=== PATIENT | male | born 1990 | race African-American/Black ===

== ENCOUNTER 2018-12-08 16:44 | Emergency (ER) | payer SELFPAY ==
[~2018-12-08] VITALS: Ht 172.7 cm; Wt 68.0 kg
[2018-12-08] MEDS ORDERED: BACITRACIN ZINC OINT UDPKT TOP ONE (17:30)
[2018-12-08] MEDS ORDERED: TETANUS, DIPHTHERIA, PERTUSSIS VAC/PF 0.5ML (>7YR OLD) IM ONE (17:30)
[2018-12-08] MEDS ORDERED: LIDOCAINE HCL 1% 20ML VIAL (Pyxis) INJ INFIL ONE (18:15)
[2018-12-08] MEDS: BACITRACIN 15GM TUBE TOP NR ×2 (18:30→21:02)
[2018-12-08] MEDS ORDERED: CEFTRIAXONE SODIUM 250 MG/VIAL IM ONE (20:45)
[2018-12-09 06:07] VITALS: BP 113/71
== END 2018-12-09 06:08 | disposition home or self-care (01) ==
LOC: ER 16:44
DX: S61.217A Laceration without foreign body of left little finger without damage to nail, initial encounter (principal); V18.0XXA Pedal cycle driver injured in noncollision transport accident in nontraffic accident, initial encounter; Y93.55 Activity, bike riding; Y92.89 Other specified places as the place of occurrence of the external cause; Z23 Encounter for immunization
CPT/HCPCS: 12002; 73130; 90471; 90715; 96372; 99283; J0696; J3490